=== PATIENT | male | born 1975 | race Hispanic/Latino ===

== ENCOUNTER 2022-07-05 16:14 | Emergency (ER) | payer OTHER ==
[~2022-07-05] VITALS: Ht 172.7 cm; Wt 120.2 kg
[2022-07-05] MEDS ORDERED: PRED5TAB PO (18:04)
[2022-07-05] MEDS ORDERED: AMOX500C2 PO (18:04)
[2022-07-05 18:06] VITALS: BP 119/73
== END 2022-07-05 18:08 | disposition home or self-care (01) ==
LOC: EDH 16:14
DX: I89.1 Lymphangitis (principal)
CPT/HCPCS: 76536